=== PATIENT | male | born 1945 | race Caucasian/White ===

== ENCOUNTER → 2021-07-08 | Outpatient (REF) ==
[2021-07-08 12:00] LABS: POTASSIUM 4.3 mmol/L (3.5-5.1)
[2021-07-08 12:01] LABS: CALCIUM 9.9 mg/dL (8.3-10.5)
== END ==
LOC: LAB 10:45
PROVIDERS: Internal Medicine Cardiovascular Disease
DX: Z01.89 Encounter for other specified special examinations (principal)